=== PATIENT | female | born 1970 | race Caucasian/White ===

== ENCOUNTER 2018-02-24 09:48 | Emergency (ER) | payer MEDICAID ==
[2018-02-24 10:42] VITALS: BP 107/65
--- NOTE | 2018-02-24 11:11 | EDM.PDOC ---
ED HPI GENERAL MEDICAL PROBLEM - General Chief Complaint: Genitourinary Problem Stated Complaint: UTI SYMPTOM/HAD AN ABLATION DONE Time Seen by Provider: 02/24/18 11:00 Source of Information: Reports: Patient History Limitations: Reports: No Limitations - History of Present Illness INITIAL COMMENTS - FREE TEXT/NARRATIVE: 47-year-old female had an endometrial ablation a week and a half ago, over the past day and a half to 2 days has developed increased urinary frequency and dysuria. No fevers or chills, some lower back discomfort. Is concerned she may have a UTI. Denies nausea or vomiting. Severity: Mild Associated Symptoms: Denies: Fever/Chills, Loss of Appetite, Malaise, Nausea/ Vomiting, Shortness of Breath Lower Abdomen Pain Score (Numeric/FACES): 6 - Related Data Allergies Allergy/AdvReac Type Severity Reaction Status Date / Time No Known Allergies Allergy Verified 02/04/16 09:59 Home Meds: Home Meds Albuterol Sulfate [Albuterol Sulfate HFA] 2 puff INH Q4HR PRN 07/14/13 [History] Iron 45 mg PO DAILY 04/02/15 [History] Doxylamine/Pyridoxine HCl [Diclegis Dr 10-10 mg Tablet] 2 tab PO DAILY 05/07/15 [History] Fluocinonide [Lidex 0.05% Crm] 30 gram TOP BID PRN 05/07/15 [History] Pantoprazole Sodium [Protonix] 40 mg PO Q4HR 05/07/15 [History] Acetaminophen/HYDROcodone [[place] 325-5 MG] 1 - 2 tab PO Q4H PRN #30 tablet 05/14 [Rx] Docusate Sodium [Colace] 100 mg PO BID #60 cap 05/14/15 [Rx] Pnv with Ca,No.72/Iron/Fa [ Vitamin with Low Iron] 1 each PO DAILY #90 tablet 05/14/15 [Rx] Ibuprofen [Motrin] 400 PO ASDIRECTED 02/24/18 [History] traZODone 100 mg PO BEDTIME 02/24/18 [History] Past Medical History Respiratory History: Reports: Bronchitis, Recurrent, Other (See Below) Other Respiratory History: neb for winter illness Gastrointestinal History: Reports: Chronic Diarrhea, Gastritis, GERD Other Gastrointestinal History: Mariah Genitourinary History: Reports: Renal Calculus 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: , Spontaneous Other OB/BYN History: Dermatologic History: Reports: Other (See Below) Other Dermatologic History: rash spots - Infectious Disease History Infectious Disease History: Reports: Chicken Pox - Past Surgical History Other HEENT Surgeries/Procedures: wisdom teeth extraction GI Surgical History: Reports: Cholecystectomy, EGD, Mariah Fundoplication Female Surgical History: Reports: Section, Tubal Ligation Social & Family History - Caffeine Use Caffeine Use: Reports: None - Recreational Drug Use Recreational Drug Use: No ED ROS GENERAL - Review of Systems Review Of Systems: See Below Constitutional: Denies: Fever, Chills Respiratory: Reports: No Symptoms Cardiovascular: Reports: No Symptoms GI/Abdominal: Reports: Abdominal Pain (Lower abdomen) : Reports: Dysuria, Urgency Musculoskeletal: Reports: Back Pain (Low back discomfort intermittent) Skin: Reports: No Symptoms Neurological: Denies: Headache ED EXAM, RENAL/ - Physical Exam Exam: See Below Exam Limited By: No Limitations General Appearance: Alert, No Apparent Distress Respiratory/Chest: No Respiratory Distress GI/Abdominal: Tender (Uncomfortable in the lower abdomen) Back Exam: No: CVA Tenderness (R), CVA Tenderness (L) Neurological: Alert, Oriented Skin Exam: Warm, Dry Course - Vital Signs Last Recorded V/S: Last Vital Signs Temp 99.2 F 02/24/18 10:41 Pulse 80 02/24/18 10:41 Resp 18 02/24/18 10:41 BP 107/65 02/24/18 10:41 Pulse Ox - Orders/Labs/Meds Orders: Active Orders 24 hr Category Date Time Status CULTURE URINE [RM] Stat Lab 02/24/18 11:36 Received UA W/MICROSCOPIC [URIN] Urgent Lab 02/24/18 11:17 Ordered Labs: Laboratory Tests 02/24/18 Range/Units 11:17 Urine Color Yellow Urine Appearance Cloudy Urine pH 5.0 (4.5-8.0) Ur Specific [place] 1.015 (1.008-1.030) Urine Protein Trace (NEGATIVE) mg/dL Urine Glucose (UA) Normal (NEGATIVE) mg/dL Urine Ketones Negative (NEGATIVE) mg/dL Urine Occult Blood Large (NEGATIVE) Urine Nitrite Negative (NEGATIVE) Urine Bilirubin Negative (NEGATIVE) Urine Urobilinogen Normal (NORMAL) mg/dL Ur Leukocyte Esterase Large (NEGATIVE) Urine RBC 10-20 H (0-5) Urine WBC 50-75 H (0-5) Ur Epithelial Cells Many Amorphous Sediment Many Urine Bacteria Many Urine Mucus Few - Re-Assessments/Exams Free Text/Narrative Re-Assessment/Exam: 02/24/18 11:11 A UA was obtained. 02/24/18 11:43 UA was markedly positive with many WBCs and bacteria. Culture was started and the patient was placed on Cipro 500 mg twice a day for the next 5 days, and was given Pyridium. She'll recheck in the next 48 hours if not improving satisfactorily or sooner if worsening such as fever or increased pain. Departure - Departure Time of Disposition: 11:54 Disposition: Home, Self-Care 01 Condition: Good Clinical Impression: UTI, Urinary tract infectious disease - Discharge Information Instructions: Urinary Tract Infection, Adult Referrals: Eliana Schwartz CNM [Primary Care Provider] - Forms: ED Department Discharge Care Plan Goals: Take antibiotic twice daily along with Pyridium for bladder spasm. Recheck in 2- 3 days if not improving satisfactorily, or return sooner if worsening such as fever or increased pain despite treatment. - My Orders Last 24 Hours: My Active Orders 02/24/18 11:17 UA W/MICROSCOPIC [URIN] Urgent 02/24/18 11:36 CULTURE URINE [RM] Stat - Assessment/Plan Last 24 Hours: My Active Orders 02/24/18 11:17 UA W/MICROSCOPIC [URIN] Urgent 02/24/18 11:36 CULTURE URINE [RM] Stat
== END 2018-02-24 11:53 | disposition home or self-care (01) ==
LOC: JP.ED 09:48
DX: N39.0 Urinary tract infection, site not specified (principal); Z79.899 Other long term (current) drug therapy
CPT/HCPCS: 81001; 87086; 87088; 87186; 99284

== ENCOUNTER 2020-02-11 04:07 | Emergency (ER) | payer MEDICAID ==
[2020-02-11 04:35] VITALS: BP 116/62; PULSE 85
--- NOTE | 2020-02-11 04:46 | EDM.PDOC ---
ED HPI GENERAL MEDICAL PROBLEM - General Chief Complaint: Genitourinary Problem Stated Complaint: CATH ISSUES Time Seen by Provider: 02/11/20 04:29 Source of Information: Reports: Patient, RN Notes Reviewed History Limitations: Reports: No Limitations - History of Present Illness INITIAL COMMENTS - FREE TEXT/NARRATIVE: 49-year-old female presents emergency department today with complaint of catheter dysfunction she recently had a vaginal hysterectomy and unfortunately had a tear in her bladder which was not repaired and is now required to have a catheter in for 10days the catheter was no longer draining and she had urinary retention Bladder Pain Score (Numeric/FACES): 9 - Related Data Allergies Allergy/AdvReac Type Severity Reaction Status Date / Time No Known Allergies Allergy Verified 02/11/20 04:27 Home Meds: Home Meds Albuterol Sulfate [Albuterol Sulfate HFA] 2 puff INH Q4HR PRN 07/14/13 [History] Fluocinonide [Lidex 0.05% Crm] 30 gram TOP BID PRN 05/07/15 [History] Ibuprofen [Motrin] 400 tab PO ASDIRECTED 02/24/18 [History] traZODone 100 mg PO BEDTIME 02/24/18 [History] Belladonna/Opium [Belladonna-Opium 16.2-30] 1 supp RECTAL Q8H 02/11/20 [History] Ciprofloxacin HCl [Cipro] 2 tab PO BID 02/11/20 [History] Oxybutynin [Oxybutynin ER] 1 tab PO BID 02/11/20 [History] Phenazopyridine [Pyridium] 1 tab PO TID 02/11/20 [History] Past Medical History HEENT History: Reports: Impaired Vision Respiratory History: Reports: Bronchitis, Recurrent, Other (See Below) Other Respiratory History: neb for winter illness Gastrointestinal History: Reports: Chronic Diarrhea, Gastritis, GERD Other Gastrointestinal History: Mariah Genitourinary History: Reports: Renal Calculus 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: , Spontaneous Other TRAIN OPERATOR History: Dermatologic History: Reports: Other (See Below) Other Dermatologic History: rash spots - Infectious Disease History Infectious Disease History: Reports: Chicken Pox - Past Surgical History Other HEENT Surgeries/Procedures: wisdom teeth extraction GI Surgical History: Reports: Cholecystectomy, Colonoscopy, EGD, Mariah Fundoplication Female Surgical History: Reports: Section, Hysterectomy, Tubal Ligation Social & Family History - Family History Family Medical History: Noncontributory - Tobacco Use Smoking Status *Q: Never Smoker - Caffeine Use Caffeine Use: Reports: Coffee - Recreational Drug Use Recreational Drug Use: No ED ROS GENERAL - Review of Systems Review Of Systems: See Below Constitutional: Reports: No Symptoms : Reports: Urinary Retention ED EXAM, RENAL/ - Physical Exam Exam: See Below Exam Limited By: No Limitations General Appearance: Alert, WD/WN, No Apparent Distress GI/Abdominal: Soft, Non-Tender Course - Vital Signs Last Recorded V/S: Last Vital Signs Temp 97.8 F 02/11/20 04:34 Pulse 85 02/11/20 04:34 Resp 18 02/11/20 04:34 BP 116/62 02/11/20 04:34 Pulse Ox 98 02/11/20 04:34 Departure - Departure Time of Disposition: 04:45 Disposition: Home, Self-Care 01 Condition: Fair Clinical Impression: Urinary catheter dysfunction Qualifiers: Encounter type: initial encounter Qualified Code(s): T83.018A - Breakdown ( mechanical) of other urinary catheter, initial encounter - Discharge Information Instructions: Indwelling Urinary Catheter Care, Adult Referrals: PCP,None [Primary Care Provider] - Additional Instructions: Keep follow-up appointment with TRAIN OPERATOR call return to the emergency department for worsening of symptoms Sepsis Event Note (ED) - Evaluation Sepsis Screening Result: No Definite Risk - Focused Exam Vital Signs: Vital Signs Temp Pulse Resp BP Pulse Ox 02/11/20 04:34 97.8 F 85 18 116/62 98 - Assessment/Plan Plan: Assessment Acuity = acute Site and laterality = urinary retention Etiology = secondary to catheter dysfunction Manifestations = none Location of injury = Home Lab values = none Plan Good relief after the catheter was replaced by nursing staff abdominal discomfort has resolved catheter is functioning as intended keep follow-up appointment with TRAIN OPERATOR This note was dictated using [employer] voice recognition software please call with any questions on syntax or grammar.
== END 2020-02-11 05:07 | disposition home or self-care (01) ==
LOC: JP.ED 04:07
DX: T83.098A Other mechanical complication of other urinary catheter, initial encounter (principal); Z79.899 Other long term (current) drug therapy
CPT/HCPCS: 51702; 51798; 99283

== ENCOUNTER 2020-02-11 21:11 | Emergency (ER) | payer MEDICAID ==
[2020-02-11] MEDS ORDERED: Ketorolac 30 MG/ML SDV IVPUSH ONE (21:45)
[2020-02-11] MEDS ORDERED: Sodium Chloride 0.9% 1,000 ML IV SCH (21:45)
--- NOTE | 2020-02-11 22:37 | EDM.PDOC ---
ED HPI GENERAL MEDICAL PROBLEM - General Chief Complaint: Genitourinary Problem Stated Complaint: KIDENY INFECTION Time Seen by Provider: 02/11/20 22:00 Source of Information: Reports: Patient, RN History Limitations: Reports: No Limitations - History of Present Illness INITIAL COMMENTS - FREE TEXT/NARRATIVE: Hiram is a 49 year old female that comes to ER with constant right flank pain that she rates 7/10. She had a laparoscopic hysterectomy in on February 02. She had a urinary bladder complication during surgery and she has an indwelling urinary catheter that is to be removed later this week. She is currently on Cipro for a UTI that was started yesterday. Her urine analysis from the clinic did have calcium oxalate in it per the patient. She was seen in the ER earlier today around 4am for feelings of urinary retention and no urine in her bag. Her catheter was changed out with no further retention issues. Right Flank Pain Score (Numeric/FACES): 7 - Related Data Allergies Allergy/AdvReac Type Severity Reaction Status Date / Time No Known Allergies Allergy Verified 02/11/20 21:32 Home Meds: Home Meds Albuterol Sulfate [Albuterol Sulfate HFA] 2 puff INH Q4HR PRN 07/14/13 [History] Fluocinonide [Lidex 0.05% Crm] 30 gram TOP BID PRN 05/07/15 [History] Ibuprofen [Motrin] 400 tab PO ASDIRECTED 02/24/18 [History] traZODone 100 mg PO BEDTIME 02/24/18 [History] Belladonna/Opium [Belladonna-Opium 16.2-30] 1 supp RECTAL Q8H 02/11/20 [History] Ciprofloxacin HCl [Cipro] 500 tab PO BID 02/11/20 [History] Oxybutynin [Oxybutynin ER] 1 tab PO BID 02/11/20 [History] Phenazopyridine [Pyridium] 1 tab PO TID 02/11/20 [History] Past Medical History HEENT History: Reports: Impaired Vision Respiratory History: Reports: Bronchitis, Recurrent, Other (See Below) Other Respiratory History: neb for winter illness Gastrointestinal History: Reports: Chronic Diarrhea, Gastritis, GERD Other Gastrointestinal History: Mariah Genitourinary History: Reports: Renal Calculus CPC History: Reports: , Spontaneous Other CPC History: Dermatologic History: Reports: Other (See Below) Other Dermatologic History: rash spots - Infectious Disease History Infectious Disease History: Reports: Chicken Pox - Past Surgical History Other HEENT Surgeries/Procedures: wisdom teeth extraction GI Surgical History: Reports: Cholecystectomy, Colonoscopy, EGD, Mariah Fundoplication Female Surgical History: Reports: Section, Hysterectomy, Tubal Ligation Social & Family History - Family History Family Medical History: Noncontributory - Tobacco Use Smoking Status *Q: Never Smoker - Caffeine Use Caffeine Use: Reports: Coffee, Soda - Recreational Drug Use Recreational Drug Use: No ED ROS GENERAL - Review of Systems Review Of Systems: See Below Constitutional: Reports: Fever, Decreased Appetite HEENT: Reports: No Symptoms Respiratory: Reports: No Symptoms Cardiovascular: Reports: Edema (to left leg) Endocrine: Reports: No Symptoms GI/Abdominal: Reports: Decreased Appetite, Distension : Reports: Flank Pain (right side) Musculoskeletal: Reports: No Symptoms Skin: Reports: No Symptoms Neurological: Reports: No Symptoms Psychiatric: Reports: No Symptoms Hematologic/Lymphatic: Reports: No Symptoms Immunologic: Reports: No Symptoms ED EXAM, RENAL/ - Physical Exam Exam: See Below Exam Limited By: No Limitations General Appearance: Alert, WD/WN, No Apparent Distress Head: Atraumatic, Normocephalic Neck: Normal Inspection, Supple Respiratory/Chest: No Respiratory Distress, Lungs Clear, Normal Breath Sounds Cardiovascular: Normal Peripheral Pulses, Regular Rate, Rhythm, Other (very slight edema to left ankle. ) GI/Abdominal: Soft, Distended, Abnormal Bowel Sounds (hyperactive ) (Female) Exam: Deferred, Other (urinary catheter in place) Rectal (Female) Exam: Deferred Back Exam: CVA Tenderness (R) Extremities: Normal Inspection, Non-Tender, Normal Capillary Refill, Pedal Edema (very slight to left LE) Neurological: Alert, Oriented Psychiatric: Normal Affect, Normal Mood Skin Exam: Warm, Dry, Other (laparoscopic surgical sites to abd. No Sx's of infection. ) Lymphatic: No Adenopathy Course - Vital Signs Last Recorded V/S: Last Vital Signs Temp 98.8 F 02/11/20 21:30 Pulse 69 02/11/20 22:54 Resp 14 02/11/20 22:54 BP 132/88 02/11/20 22:54 Pulse Ox 97 02/11/20 22:54 - Orders/Labs/Meds Orders: Active Orders 24 hr Category Date Time Status CULTURE URINE [RM] Stat Lab 02/11/20 22:15 Received Labs: Laboratory Tests 02/11/20 02/11/20 02/11/20 Range/Units 21:43 22:04 22:05 WBC 7.7 (4.5-11.0) K/uL RBC 3.70 (3.30-5.50) M/uL Hgb 11.3 L (12.0-15.0) g/dL Hct 35.8 L (36.0-48.0) % MCV 97 (80-98) fL MCH 31 (27-31) pg MCHC 32 (32-36) % Plt Count 265 (150-400) K/uL Neut % (Auto) 66 (36-66) % Lymph % (Auto) 22 L (24-44) % [place] % (Auto) 9 H (2-6) % Eos % (Auto) 3 (2-4) % Baso % (Auto) 0 (0-1) % Sodium 141 (140-148) mmol/L Potassium 3.9 (3.6-5.2) mmol/L Chloride 105 (100-108) mmol/L Carbon Dioxide 27 (21-32) mmol/L Anion Gap 8.8 (5.0-14.0) mmol/L BUN 15 D (7-18) mg/dL Creatinine 1.1 H D (0.6-1.0) mg/dL Est Cr Clr Drug Dosing 49.04 mL/min Estimated GFR (MDRD) 53 L (>60) Glucose 106 (74-106) mg/dL Calcium 8.2 L (8.5-10.1) mg/dL Total Bilirubin 0.6 (0.2-1.0) mg/dL AST 54 H D (15-37) U/L ALT 140 H (12-78) U/L Alkaline Phosphatase 83 (46-116) U/L Total Protein 7.0 (6.4-8.2) g/dL Albumin 3.8 (3.4-5.0) g/dL Globulin 3.2 (2.3-3.5) g/dL Albumin/Globulin Ratio 1.2 (1.2-2.2) Urine Color [place] A (YELLOW) Urine Appearance Clear (CLEAR) Urine pH 7.0 (5.0-8.0) Ur Specific [place] 1.025 (1.008-1.030) Urine Protein Trace H (NEGATIVE) mg/dL Urine Glucose (UA) Negative (NEGATIVE) mg/dL Urine Ketones Negative (NEGATIVE) mg/dL Urine Occult Blood Moderate H (NEGATIVE) Urine Nitrite Positive H (NEGATIVE) Urine Bilirubin Negative (NEGATIVE) Urine Urobilinogen 0.2 (0.2-1.0) EU/dL Ur Leukocyte Esterase Trace H (NEGATIVE) Urine RBC 20-30 H (0-5) Urine WBC 0-5 (0-5) Ur Epithelial Cells Not seen Amorphous Sediment Not seen Urine Bacteria Not seen Urine Mucus Not seen Meds: Medications Discontinued Medications Generic Name Dose Route Start Last Admin Trade Name Freq PRN Reason Stop Dose Admin Sodium Chloride 1,000 mls @ 999 mls/hr 02/11/20 21:45 02/11/20 22:00 Normal Saline IV 999 mls/hr ASDIRECTED KERI Administration Ceftriaxone Sodium 1 gm/ 50 mls @ 100 mls/hr 02/11/20 23:26 02/11/20 23:42 Sodium Chloride IV 02/11/20 23:55 100 mls/hr ONETIME ONE Administration Ketorolac Tromethamine 30 mg 02/11/20 21:45 02/11/20 22:49 Toradol IVPUSH 02/11/20 21:46 30 mg ONETIME ONE Administration - Radiology Interpretation Free Text/Narrative:: CT results "no urinary tract stones or hydronephrosis, Colonic fecal retention involving the ascending and transverse colon, normal appearing appendix, small amount of free fluid in the cul-de-sac" Departure - Departure Time of Disposition: 00:19 Disposition: Home, Self-Care 01 Condition: Good Clinical Impression: Pyelonephritis of right kidney - Discharge Information *PRESCRIPTION DRUG MONITORING PROGRAM REVIEWED*: No *COPY OF PRESCRIPTION DRUG MONITORING REPORT IN PATIENT MEGAN: No Instructions: Pyelonephritis, Adult, [id number] Referrals: Eliana Schwartz CNM [Primary Care Provider] - Forms: ED Department Discharge Additional Instructions: Return to the ED later today (02/12/2020) for another dose of IV Rocephin. At that time, we will check your Urine culture and see what oral antibiotics to start you on. Recommend stopping the oxybutynin and take the Hyoscyamine instead. (Oxybutynin can cause constipation). Take a capful of miralax daily for the constipation until you feel less bloated. Drink lots of water to help flush the kidneys. Return to the ED sooner with any worsening of symptoms, increased pain, high fevers or any other concerns. Sepsis Event Note (ED) - Evaluation Sepsis Screening Result: No Definite Risk - Focused Exam Vital Signs: Vital Signs Temp Pulse Resp BP Pulse Ox 02/11/20 22:54 69 14 132/88 97 02/11/20 21:30 98.8 F 82 16 130/86 95 02/11/20 21:28 98.8 F 82 16 130/86 95 - My Orders Last 24 Hours: My Active Orders 02/11/20 22:15 CULTURE URINE [RM] Stat - Assessment/Plan Last 24 Hours: My Active Orders 02/11/20 22:15 CULTURE URINE [RM] Stat Plan: plan to discharge home. return tonight (02/12/2020) at 20:00 for another dose of IV rocephin [address] was negative for kidney stone. Urine culture ordered to determine appropriate antibiotic. SL to be left in place.
[2020-02-11 22:55] VITALS: BP 132/88; PULSE 69
--- NOTE | 2020-02-11 23:17 | CRLCT ---
INDICATION: Right flank pain TECHNIQUE: CT abdomen and pelvis without contrast. COMPARISON: 07/14/2013 FINDINGS: Lower chest: Unremarkable. Liver: Unremarkable. Spleen: Unremarkable. Pancreas: Unremarkable. Gallbladder and bile ducts: Cholecystectomy. Kidneys: Unremarkable. No kidney or ureteral stones and no hydronephrosis. Adrenal glands: Unremarkable. GI tract: Colonic fecal retention involving the ascending and transverse colon. Appendix is normal. Vascular structures: Unremarkable. Lymph nodes: Unremarkable. Miscellaneous: Unremarkable. No free air. Small amount of free fluid in the cul-de-sac. Pelvic Organs: Prado catheter within a decompressed urinary bladder. Hysterectomy 1 week prior. Bones: Unremarkable for age. IMPRESSION: No urinary tract stones or hydronephrosis. Colonic fecal retention involving the ascending and transverse colon. Normal-appearing appendix. Small amount of free fluid in the cul-de-sac. Dictated by Mario Loya MD @ 02/11/2020 11:16:51 PM Please note that all CT scans at this facility use dose modulation, iterative reconstruction, and/or weight-based dosing when appropriate to reduce radiation dose to as low as reasonably achievable. Dictated by: Mario Loya MD @ 02/11/2020 23:16:58 (Electronically Signed)
[2020-02-11] MEDS ORDERED: cefTRIAXone 1 GM in Sodium Chloride 0.9% 50 ML IV ONE (23:26)
[2020-02-12] MEDS ORDERED: cefTRIAXone 1 GM in Sodium Chloride 0.9% 50 ML IV ONE (20:00)
== END 2020-02-12 00:50 | disposition home or self-care (01) ==
LOC: JP.ED 21:11
DX: N12 Tubulo-interstitial nephritis, not specified as acute or chronic (principal); Z79.899 Other long term (current) drug therapy
CPT/HCPCS: 36415; 74176; 80053; 81001; 85025; 87086; 96365; 96375; 99284; J0696; J1885; J7030; J7050